=== PATIENT | male | born 1980 | race Caucasian/White ===

== ENCOUNTER 2016-12-24 11:52 | Inpatient (IN) | payer OTHER ==
[~2016-12-24] VITALS: Ht 180.3 cm; Wt 73.6 kg
[2016-12-24 11:54] VITALS: BP 132/83; PULSE 94; RESP 20; TEMP 97.9; O2SAT 97
--- NOTE | 2016-12-24 12:03 | PD ---
Physical Exam Time Seen by Provider: 12:00 Narrative 89yo M sent by Dr. Siddiqi for possible infection in his spine secondary to change on x-ray. Denies IVD use, cancer. Denies encopresis, incontinence, saddle anesthesias. Patient seen in triage. VS reviewed. Awaiting bed placement. Data Data Last Documented VS Vital Signs Date Time Temp Pulse Resp B/P Pulse Ox O2 Delivery O2 Flow Rate FiO2 12/24/16 11:54 97.9 94 20 132/83 97 Room Air [facility] Supervised Visit with ELVIRA: An Staley December 24, 2016 12:03
[2016-12-24 12:40] VITALS: BP 110/48; PULSE 75; RESP 15; O2SAT 99
[2016-12-24 12:55] VITALS: BP 136/87; PULSE 90; RESP 15; O2SAT 97
[2016-12-24] MEDS ORDERED: SODIUM CHLOR 0.9% 1000 ML INJ 1,000 ML IV SCH (13:12)
[2016-12-24] MEDS ORDERED: ONDANSETRON HCL 4 MG/2 ML VIAL IVP ONE (13:15)
[2016-12-24] MEDS ORDERED: SODIUM CHLORIDE 0.9% FLUSH 10 ML FLUSH IV FLUSH PRN ×2 (13:15→19:30)
[2016-12-24] MEDS ORDERED: MORPHINE SULFATE 4 MG/ML INJ IV PUSH ONE ×2 (13:15→14:45)
--- NOTE | 2016-12-24 13:30 | PD ---
HPI Chief Complaint: Abnormal Results Time Seen by Provider: 13:19 Travel History International Travel<30 days: No Contact w/Intl Traveler<30days: No Traveled to known affect area: No History of Present Illness HPI Patient comes in from Dr. Rob's office for evaluation and possible neurosurgery consult possible pyogenic infection of the lumbar spine. Patient states he's been dealing with back pain since October which was initially diagnosed as a strain as the pain began after he done some heavy lifting. Patient had MRI previously that showed L3-4 interspace inflammation with a central herniated disc. Patient reportedly had a right arm infection September 2016 that he treated by himself. Dr. Rob took x-rays and his office that shows severe discitis causing patient to be sent to the emergency department. Patient states his back pain is sharp stabbing and radiates into his right leg. Pain is worse with certain movement. Patient has had minimal relief with anti -inflammatories, prednisone, and Muscle relaxer that he was prescribed. Patient states pain seems be getting worse. Patient reports slightly decreased sensation/numbness in his right lower extremity compared to left distally. Patient reported weakness Dr. Rob however denies that here. Denies any fevers, chest pain, IV drug use, known trauma, loss or change in bowel or bladder. [facility] Past Medical History Medical History: Denies Significant Hx Tetanus Vaccination: Unknown Influenza Vaccination: No Past Surgical History Abdominal Surgery: No Social History Alcohol Use: No Tobacco Use: Yes Substance Use: No Allergies-Medications (Allergen,Severity, Reaction): Coded Allergies: No Known Allergies (Unverified , 12/24/16) Review of Systems Except as stated in HPI: all other systems reviewed are Neg Physical Exam Narrative GENERAL: Well-developed, overly nourished, in no acute distress, and non-ill appearing. SKIN: Focused skin assessment warm and dry. HEAD: Atraumatic. Normocephalic. EYES: Pupils equal and round. EOMI. No scleral icterus. No injection or drainage. ENT: No nasal bleeding or discharge. Mucous membranes pink and moist. NECK: Trachea midline. No JVD. Supple. No nuclear rigidity. CARDIOVASCULAR: Regular rate and rhythm. No murmur appreciated. Dorsal pulses 2+, intact, and equal bilaterally. Capillary refill less than 2 seconds bilaterally. RESPIRATORY: No accessory muscle use. No respiratory distress. Clear to auscultation. Breath sounds equal bilaterally. GASTROINTESTINAL: Abdomen soft, non-tender, nondistended. Hepatic and splenic margins not palpable. No pulsatile mass. MUSCULOSKELETAL: No obvious deformities. No clubbing. No cyanosis. No edema. Full range of motion. Patient reports tenderness to palpation over lumbar spine and right paravertebral spinal muscles. Straight leg test positive bilaterally. Hip: FROM and equal BL with passive flexion, extension, Abduction , Adduction, and internal/external rotation. Pulses equal BL distal to injury. Capillary refill less than 2 seconds distal to injury and equal BL. FROM distal to injury and equal BL. Strength distal to injury equal BL. Plantar flexion and dorsal flexion equal BL. Dorsal pulses equal BL. Sensation decreased right lower extremity 1st web space per patient. NEUROLOGICAL: Awake and alert. No obvious cranial nerve deficits. Motor grossly within normal limits. Normal speech. PSYCHIATRIC: Appropriate mood and affect; insight and judgment normal. Data Data Last Documented VS Vital Signs Date Time Temp Pulse Resp B/P Pulse Ox O2 Delivery O2 Flow Rate FiO2 12/24/16 13:58 70 16 136/87 96 Room Air 12/24/16 11:54 97.9 Orders Basic Metabolic Panel (Bmp) (12/24/16 13:12) Complete Blood Count With Diff (12/24/16 13:12) Prothrombin Time / Inr (Pt) (12/24/16 13:12) Act Partial Throm Time (Ptt) (12/24/16 13:12) Iv Access Insert/Monitor (12/24/16 13:12) Ecg Monitoring (12/24/16 13:12) Oximetry (12/24/16 13:12) Morphine Inj (Morphine Inj) (12/24/16 13:15) Ondansetron Inj (Zofran Inj) (12/24/16 13:15) Sodium Chlor 0.9% 1000 Ml Inj (Ns 1000 M (12/24/16 13:12) Sodium Chloride 0.9% Flush (Ns Flush) (12/24/16 13:15) Mri L Spine W&W/O Contrast (12/24/16 ) Morphine Inj (Morphine Inj) (12/24/16 14:45) Gadodiamide Pf Inj (Omniscan Pf Inj) (12/24/16 15:35) Blood Culture (12/24/16 17:09) C-Reactive Protein (Crp) (12/24/16 17:09) Westergren Sedimentation Rate (12/24/16 17:09) Vancomycin Inj (Vancomycin Inj) (12/24/16 17:15) Cefepime Inj (Maxipime Inj) (12/24/16 17:15) Ceftazidime Inj (Fortaz Inj) (12/24/16 19:15) Metronidazole 500 Mg Inj (Flagyl 500 Mg (12/24/16 19:15) Consult Neurosurgery (12/24/16 ) Admit Order (Ed Use Only) (12/24/16 19:15) Consult Orthopedic (12/24/16 ) Labs Laboratory Tests Test 12/24/16 12/24/16 13:41 17:30 White Blood Count 8.4 TH/MM3 Red Blood Count 4.60 MIL/MM3 Hemoglobin 12.1 GM/DL Hematocrit 37.5 % Mean Corpuscular Volume 81.5 FL Mean Corpuscular Hemoglobin 26.2 PG Mean Corpuscular Hemoglobin 32.2 % Concent Red Cell Distribution Width 15.3 % Platelet Count 349 TH/MM3 Mean Platelet Volume 8.2 FL Neutrophils (%) (Auto) 65.8 % Lymphocytes (%) (Auto) 22.8 % Monocytes (%) (Auto) 8.3 % Eosinophils (%) (Auto) 2.6 % Basophils (%) (Auto) 0.5 % Neutrophils # (Auto) 5.5 TH/MM3 Lymphocytes # (Auto) 1.9 TH/MM3 Monocytes # (Auto) 0.7 TH/MM3 Eosinophils # (Auto) 0.2 TH/MM3 Basophils # (Auto) 0.0 TH/MM3 CBC Comment DIFF FINAL Differential Comment Prothrombin Time 11.8 SEC Prothromb Time International 1.1 RATIO Ratio Activated Partial 29.8 SEC Thromboplast Time Sodium Level 139 MEQ/L Potassium Level 3.7 MEQ/L Chloride Level 103 MEQ/L Carbon Dioxide Level 28.6 MEQ/L Anion Gap 7 MEQ/L Blood Urea Nitrogen 17 MG/DL Creatinine 0.94 MG/DL Estimat Glomerular Filtration 92 ML/MIN Rate Random Glucose 87 MG/DL Calcium Level 9.8 MG/DL Erythrocyte Sedimentation Rate 68 mm/hr C-Reactive Protein 5.10 MG/DL MDM Medical Decision Making Medical Screen Exam Complete: Yes Emergency Medical Condition: Yes Interpretation(s) MRI report with radiologist shows discitis at level 3/4 level destroying the end plates of L3 and L4 with an epidural component. Differential Diagnosis Epidural abscess, discitis, herniation, sciatica, fracture, other Narrative Course 1430 patient reassessed reports some improvement of pain with medications received here however not completely controlled, additional pain medication ordered. Discussed all laboratory findings. Awaiting MRI. 1650 patient reassessed after return from MRI. No change in pain but has not yet received second dose of pain medication. Discussed MRI findings with patient. [address] Floyd recommends starting patient on vancomycin and cefepime while awaiting consults. Discussed all findings and plan care of patient, who was agreeable for admission. All questions were answered. Patient remains stable throughout ED course. Physician Communication Physician Communication [address] Cagle who wants Dr. Rob to admit but will consult if needed. [address] Mota precision assembler for Dr. Rob states he'll contact Dr. Rob to find out what he wants done with this patient. [address] Mota again states Dr. Rob wants patient admitted to medicine and neurosurgery consult. [address] Cagle is remarkable consult patient wants patient started on Vanco 1 g every 12 hours, Fortaz 2 g every 8 hours, and Flagyl 500 mg every 8 hours. [address] Manjarrez who was agreeable to admit the patient. Diagnosis Primary Impression: Discitis of lumbar region Admitting Information Admitting Physician Requests: Admit Condition: Stable Leo Chaudhary December 24, 2016 13:30
[2016-12-24 13:58] VITALS: BP 136/87; PULSE 70; RESP 16; O2SAT 96
[2016-12-24 14:01] LABS: AUTOMATED NEUTROPHIL # 5.5 TH/MM3 (1.8-7.7); BASOPHIL % 0.5 % (0.0-2.0); EOSINOPHIL # 0.2 TH/MM3 (0-0.4); EOSINOPHIL % 2.6 % (0.0-4.0); HEMATOCRIT 37.5 % (39.0-51.0); HEMO FLAGS DIFF FINAL; LYMPH % 22.8 % (9.0-44.0); LYMPHOCYTE # 1.9 TH/MM3 (1.0-4.8); MEAN CELL VOLUME 81.5 FL (80.0-100.0); MEAN CORPUSCULAR HEMOGLOBIN 26.2 PG (27.0-34.0); MEAN CORPUSCULAR HGB CONC 32.2 % (32.0-36.0); MONO % 8.3 % (0.0-8.0); NEUT % 65.8 % (16.0-70.0); PLATELET COUNT 349 TH/MM3 (150-450); RED CELL DISTRIBUTION WIDTH 15.3 % (11.6-17.2); WHITE BLOOD COUNT 8.4 TH/MM3 (4.0-11.0)
[2016-12-24 14:06] LABS: APTT (PATIENT) 29.8 SEC (24.3-30.1); INTERNATIONAL NORMALIZED RATIO 1.1 RATIO; PROTHROMBIN TIME - PATIENT 11.8 SEC (9.8-11.6)
[2016-12-24 14:09] LABS: BICARBONATE 28.6 MEQ/L (21.0-32.0); POTASSIUM 3.7 MEQ/L (3.5-5.1)
[2016-12-24] MEDS ORDERED: GADODIAMIDE PF 287 MG/ML 20 ML VIAL (for RAD MRI) IV ONE (15:35)
--- NOTE | 2016-12-24 16:57 | RADRPT ---
EXAM DATE/TIME: 12/24/2016 15:12 [place] COMPARISON: No previous studies available for comparison. INDICATIONS : Severe back pain radiating to left leg for 2 months. No known injury. CONTRAST: 17 cc Omniscan (gadodiamide) IV MEDICAL HISTORY : None. SURGICAL HISTORY : Left tib/fib rodding. ENCOUNTER: Initial ACUITY: 2 months PAIN SCORE: 9/10 LOCATION: Low back. TECHNIQUE: Multiplanar multisequence MRI of the lumbar spine was performed with and without contr ast. FINDINGS: MRI of the lumbar spine was obtained. This shows extensive discitis at the L3-4 disc space with epidural fluid in the epidural space consis tent with an epidural abscess. Marrow at L1, L2 and L5 are normal. SI joints are normal. There is a retroperitoneal component more so on the left than the right. CONCLUSION: Discitis at the L3-4 level destroying the endplates of L3 and L4 with an epidural com ponent. Wes Mukherjee MD FACR on December 24, 2016 at 16:46 Board Certified Radiologist. This report was verified electronically.
[2016-12-24] MEDS ORDERED: VANCOMYCIN INJ 1,250 MG in SODIUM CHLOR 0.9% 250 ML INJ 250 ML IV ONE (17:15)
[2016-12-24] MEDS ORDERED: CEFEPIME INJ 2,000 MG in SODIUM CHLORIDE 0.9% INJ 100 ML IV ONE (17:15)
[2016-12-24] MEDS ORDERED: metroNIDAZOLE 500 MG INJ 100 ML IV ONE (19:15)
[2016-12-24] MEDS ORDERED: cefTAZidime INJ 2,000 MG in SODIUM CHLORIDE 0.9% INJ 100 ML IV ONE (19:15)
[2016-12-24] MEDS ORDERED: NALOXONE HCL 0.4 MG/ML AMP IV PRN (19:30)
--- NOTE | 2016-12-24 19:32 | PD.CONS ---
[facility] Service Neurosurgery Consult Requested By Haydee MOORE Reason for Consult Spine infection Primary Care Physician Feliciano Wallace History of Present Illness This is a 36-year-old male with no past medical history. 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 He research how to treat the infection on online and apparently he used family members antibiotics to treat himself. Per patient, his wound healed nicely. He states that he started having back pain 2 months ago. He went to see a chiropractor the chiropractor immediately ordered an MRI of his back and found that he had bulging disks. He finally got a referral to see a spinal; surgeon, Dr. Rob yesterday who imaging his back and after reviewing it recommended that he go straight to the emergency room for further admision. He tells me that his pain is about a 9 out of 10 especially when he moves, tries to sit or stand. Coughing and sneezing make things worse as well. He currently denies any chest pain, shortness of breath, nausea or vomiting. He denies any fevers or chills. He denies any abdominal pain. He denies any bladder or bowel incontinence. AN MRI was done. Dr Mcclain was contacted but apparently he refused to come and see his patient. He requested a neurosurgical consult Review of Systems Constitutional: DENIES: Diaphoretic episodes, Fatigue, Fever, Weight gain, Weight loss, Chills, Dizziness, Change in appetite, Night Sweats Endocrine: DENIES: Heat/cold intolerance, Polydipsia, Polyuria, Polyphagia Eyes: DENIES: Blurred vision, Diplopia, Eye inflammation, Eye pain, Vision loss , Photosensitivity, Double Vision Ears, nose, mouth, throat: DENIES: Tinnitus, Hearing loss, Vertigo, Nasal discharge, Oral lesions, Throat pain, Hoarseness, Ear Pain, Running Nose, Epistaxis, Sinus Pain, Toothache, Odynophagia Respiratory: DENIES: Apneas, Cough, Snoring, Wheezing, Hemoptysis, Sputum production, Shortness of breath Cardiovascular: DENIES: Chest pain, Palpitations, Syncope, Dyspnea on Exertion , PND, Lower Extremity Edema, Orthopnea, Claudication Gastrointestinal: DENIES: Abdominal pain, Black stools, Bloody stools, Constipation, Diarrhea, Nausea, Vomiting, Difficulty Swallowing, Anorexia Genitourinary: DENIES: Sexual dysfunction, Urinary frequency, Urinary incontinence, Urgency, Hematuria, Dysuria, Nocturia, Penile Discharge, Testicular Pain, Testicular Swelling Musculoskeletal: COMPLAINS OF: Joint pain, Back pain, DENIES: Muscle aches, Stiffness, Joint Swelling, Neck pain Integumentary: DENIES: Abnormal pigmentation, Nail changes, Pruritus, Rash Hematologic/lymphatic: DENIES: Bruising, Lymphadenopathy Immunologic/allergic: COMPLAINS OF: Eczema Neurologic: DENIES: Abnormal gait, Headache, Localized weakness, Paresthesias, Seizures, Speech Problems, Tremor, Poor Balance Psychiatric: DENIES: Anxiety, Confusion, Mood changes, Depression, Hallucinations, Agitation, Suicidal Ideation, Homicidal Ideation, Delusions Past Family Social History Allergies: Coded Allergies: No Known Allergies (Unverified , 12/24/16) Past Medical History None Past Surgical History Left Lower extremities surgery and foot surgery Reported Medications Diclofenac Sodium DR (Diclofenac Sodium) 50 Mg Tabdr 50 Mg PO BID Active Ordered Medications Current Medications Morphine Sulfate (Morphine Inj) 2 mg ONCE ONCE IV PUSH Last administered on 13:49; Start 12/24/16 at 13:15; Stop 12/24/16 at 13:16; Status DC Ondansetron HCl 4 mg 4 mg ONCE ONCE IVP Last administered on 12/24/16 13:49; Start 12/24/16 at 13:15; Stop 12/24/16 at 13:16; Status DC Sodium Chloride (NS 1000 ml Inj) 1,000 ml @ 1,000 mls/hr Q1H IV Last administered on 12/24/16 13:50; Start 12/24/16 at 13:12; Stop 12/24/16 at 14:14 ; Status DC Sodium Chloride (NS Flush) 2 ml UNSCH PRN IV FLUSH FLUSH AFTER USING IV ACCESS ; Start 12/24/16 at 13:15; Stop 12/25/16 at 16:27; Status DC Morphine Sulfate (Morphine Inj) 2 mg ONCE ONCE IV PUSH Last administered on 16:45; Start 12/24/16 at 14:45; Stop 12/24/16 at 14:46; Status DC Gadodiamide 17 ml 17 ml STK-MED ONCE IV Last administered on 12/24/16 15:35; Start 12/24/16 at 15:35; Stop 12/24/16 at 15:36; Status DC Vancomycin HCl 1250 mg/Sodium Chloride 262.5 ml @ 250 mls/hr ONCE ONCE IV Last administered on 12/24/16 22:11; Start 12/24/16 at 17:15; Stop 12/24/16 at 18:17; Status DC Cefepime HCl 2000 mg/Sodium Chloride 100 ml @ 200 mls/hr ONCE ONCE IV Last administered on 12/24/16 21:25; Start 12/24/16 at 17:15; Stop 12/24/16 at 17:59 ; Status DC Ceftazidime 2000 mg/Sodium Chloride 100 ml @ 200 mls/hr ONCE ONCE IV Last administered on 12/24/16 21:07; Start 12/24/16 at 19:15; Stop 12/24/16 at 19:44 ; Status DC Metronidazole (Flagyl 500 Mg Inj) 100 ml @ 100 mls/hr ONCE ONCE IV Last administered on 12/24/16 20:00; Start 12/24/16 at 19:15; Stop 12/24/16 at 20:14 ; Status DC Sodium Chloride (NS Flush) 2 ml UNSCH PRN IV FLUSH FLUSH AFTER USING IV ACCESS ; Start 12/24/16 at 19:30 Sodium Chloride (NS Flush) 2 ml BID IV FLUSH Last administered on 12/26/16 21: 00; Start 12/24/16 at 21:00 Naloxone HCl (Narcan Inj) 0.4 mg UNSCH PRN IV SEE LABEL COMMENTS; Start at 19:30 Hydromorphone HCl 0.5 mg 0.5 mg Q4H PRN IV PUSH BREAKTHROUGH PAIN Last administered on 12/26/16 09:27; Start 12/24/16 at 19:45; Stop 12/26/16 at 12:29; Status DC Pharmacy Profile Note 0 ml @ 0 mls/hr UNSCH OTHER ; Start 12/24/16 at 19:45; Stop 12/27/16 at 12:14; Status DC Ceftazidime 2000 mg/Sodium Chloride 100 ml @ 200 mls/hr Q8H IV Last administered on 12/27/16 12:02; Start 12/25/16 at 04:00; Stop 12/27/16 at 13:11; Status DC Metronidazole (Flagyl 500 Mg Inj) 100 ml @ 100 mls/hr Q8H IV Last administered on 12/25/16 11:33; Start 12/25/16 at 03:00; Stop 12/25/16 at 16:24; Status DC Hydromorphone HCl 0.5 mg 0.5 mg ONCE ONCE IV PUSH Last administered on 21:03; Start 12/24/16 at 20:15; Stop 12/24/16 at 20:18; Status DC Vancomycin HCl/ Sodium Chloride (Vancomycin Inj/ NS 500 ml Inj) 515 ml @ 257.5 mls/ hr Q8H IV Last administered on 12/25/16 11:32; Start 12/25/16 at 05:00; Stop 12/25/16 at 22:42; Status DC Miscellaneous Information SPECIFIC LAB TO BE MICHEL... ONCE ONCE .XX Last administered on 12/26/16 08:45; Start 12/26/16 at 08:45; Stop 12/26/16 at 08:46; Status DC Influenza Virus Vaccine (Flu (Quadrivalent) Vaccine Inj) 0.5 ml ONCE ONCE IM ; Start 12/27/16 at 09:00; Stop 12/27/16 at 09:01; Status Cancel Midazolam HCl (Versed Inj) 5 mg STK-MED ONCE .ROUTE Last administered on 13:50; Start 12/25/16 at 13:50; Stop 12/25/16 at 13:51; Status DC Fentanyl Citrate 250 mcg 250 mcg STK-MED ONCE .ROUTE Last administered on 13:50; Start 12/25/16 at 13:50; Stop 12/25/16 at 13:51; Status DC Metronidazole (Flagyl 500 Mg Inj) 100 ml @ 100 mls/hr Q8H IV Last administered on 12/26/16 12:16; Start 12/25/16 at 20:00; Stop 12/26/16 at 13:47; Status DC Acetaminophen/ Hydrocodone Bitart ([place] 7.5-325 Mg) 1 tab Q4H PRN PO PAIN SCALE 4 TO 6; Start 12/25/16 at 18:00 Acetaminophen/ Hydrocodone Bitart ([place] 10-325 Mg) 1 tab Q6H PRN PO PAIN SCALE 7 TO 10 Last administered on 12/27/16 15:56; Start 12/25/16 at 18:00 Polyethylene Glycol (Miralax) 17 gm DAILY PO Last administered on 12/27/16 08: 34; Start 12/26/16 at 09:00 Magnesium Hydroxide (Milk Of Ana Cristina Limario) 30 ml DAILY PRN PO CONSTIPATION; Start 12/25/16 at 18:15 Senna/Docusate Sodium 1 tab 1 tab BID PRN PO CONSTIPATION; Start 12/25/16 at 18: 15 Vancomycin HCl/ Sodium Chloride (Vancomycin Inj/ NS 500 ml Inj) 515 ml @ 257.5 mls/ hr Q8H IV Last administered on 12/27/16 08:34; Start 12/26/16 at 01:00; Stop 12/27/16 at 12:14; Status DC Hydromorphone HCl (Dilaudid Pf Inj) 1 mg Q4H PRN IV PUSH BREAKTHROUGH PAIN Last administered on 12/27/16 15:10; Start 12/26/16 at 15:45 Hydromorphone HCl (Dilaudid Pf Inj) 1 mg ONCE ONCE IV PUSH Last administered on 12/26/16 13:15; Start 12/26/16 at 13:00; Stop 12/26/16 at 13:01; Status DC Ketorolac Tromethamine 15 mg 15 mg Q6HR IV PUSH Last administered on 12/27/16 12:02; Start 12/26/16 at 18:00; Stop 12/29/16 at 18:00 Cefepime HCl/ Sodium Chloride (Maxipime Inj/NS Inj) 100 ml @ 200 mls/hr Q8H IV ; Start 12/27/16 at 15:00 Family History mother from ovarian cancer at age 51. Social History Smokes occasionally, very rarely He hasn't drank ETOH for the past 3-4 years. Admits to marijuana use a long time ago. Physical Exam Vital Signs Vital Signs Date Time Temp Pulse Resp B/P Pulse Ox O2 Delivery O2 Flow Rate FiO2 12/24/16 13:58 70 16 136/87 96 Room Air 12/24/16 13:54 14 12/24/16 12:55 80 14 96 Room Air 12/24/16 12:55 90 15 136/87 97 Room Air 12/24/16 12:40 75 15 110/48 99 Room Air 12/24/16 11:54 97.9 94 20 132/83 97 Room Air Physical Exam Mr Oliveira is alert, awake and oriented to time, place and person. Speech is fluent. Cranial nerve examination: pupils to be equal, round and reactive to light. Extra-ocular movements are intact. Facial motor and sensory function are normal and symmetrical. Gross hearing appears intact. Sternocleidomastoid and trapezius muscles are symmetrical. Other cranial nerves are intact. Neck is soft and supple with a good range of motion without pain. Muscle strength is normal in all muscle groups of both upper and lower extremities. Sensory examination is intact to light touch and pin prick in both the upper and lower extremities. Deep tendon reflexes are symmetrical in both upper and lower extremities. There is a bilateral plantar flexion response. Cerebellar examination is unremarkable, without deficits. Laboratory Laboratory Tests Test 12/24/16 12/24/16 13:41 17:30 White Blood Count 8.4 Red Blood Count 4.60 Hemoglobin 12.1 Hematocrit 37.5 Mean Corpuscular Volume 81.5 Mean Corpuscular Hemoglobin 26.2 Mean Corpuscular Hemoglobin 32.2 Concent Red Cell Distribution Width 15.3 Platelet Count 349 Mean Platelet Volume 8.2 Neutrophils (%) (Auto) 65.8 Lymphocytes (%) (Auto) 22.8 Monocytes (%) (Auto) 8.3 Eosinophils (%) (Auto) 2.6 Basophils (%) (Auto) 0.5 Neutrophils # (Auto) 5.5 Lymphocytes # (Auto) 1.9 Monocytes # (Auto) 0.7 Eosinophils # (Auto) 0.2 Basophils # (Auto) 0.0 CBC Comment DIFF FINAL Differential Comment Prothrombin Time 11.8 Prothromb Time International 1.1 Ratio Activated Partial 29.8 Thromboplast Time Sodium Level 139 Potassium Level 3.7 Chloride Level 103 Carbon Dioxide Level 28.6 Anion Gap 7 Blood Urea Nitrogen 17 Creatinine 0.94 Estimat Glomerular Filtration 92 Rate Random Glucose 87 Calcium Level 9.8 Erythrocyte Sedimentation Rate 68 C-Reactive Protein 5.10 Date/Time Procedure Status Source Growth 12/24/16 17:00 Aerobic Blood Culture Received Blood Peripheral Pending 12/24/16 17:00 Anaerobic Blood Culture Received Blood Peripheral Pending Result Diagram: 12/24/16 1341 12/24/16 1341 Imaging Last Impressions Lumbar Spine MRI 12/24/16 0000 Signed Impressions: Service Date/Time: Saturday, December 24, 2016 15:12 - CONCLUSION: Discitis at the L3-4 level destroying the endplates of L3 and L4 with an epidural component. Wes Mukherjee MD FACR Attending Statement This patient is already under the care of a spinal surgeon, Dr Mcclain. I do not assume care of the patient. No emergency surgery needed Neuro. neuro checks in a serial fashion. Please send Sed rate, CRP, and start broad spectrum IV ABX. Recommend CT-guided biopsy and cultures. I explained to Mr Oliveira that he is Dr Mcclain's patient, who is a spine surgeon. I will defer further management to him, who knows the patient Pulmonary aggressive pulmonary toilette, nasotracheal suction, and breathing treatments with nebulizers. PT and OT evaluation Nutrition. NPO after midnight Renal. monitor closely urine output, BUN and creatinine Endocrine. Monitor serial Acu checks and SSI as needed in detail ID monitor for signs of infection Protonix for stress ulcer prophylaxis Doroteo hose and SCD's for DVT prophylaxis Dar Cagle MD December 24, 2016 19:32
[2016-12-24] MEDS ORDERED: Vancomycin Consult Pharmacy 1 EA OTHER SCH (19:45)
[2016-12-24 19:57] VITALS: BP 134/76; PULSE 86; RESP 18; O2SAT 99
[2016-12-24] MEDS ORDERED: HYDROmorphone HCL PF 1 MG/ML VIAL IV PUSH ONE (20:15)
[2016-12-24] MEDS: SODIUM CHLORIDE 0.9% FLUSH 10 ML FLUSH IV FLUSH SCH (21:06)
[2016-12-24] MEDS: HYDROmorphone HCL PF 1 MG/ML VIAL IV PUSH PRN (21:10)
[2016-12-24 21:19] VITALS: BP 153/58; PULSE 76; RESP 18; O2SAT 97
[2016-12-24] MEDS ORDERED: DICL50TA3 PO (21:20)
[2016-12-25] VITALS (7 sets, daily range): BP systolic 107–143; BP diastolic 62–88; PULSE 57–77; RESP 19–21; TEMP 97.7–98.7; O2SAT 97–100
[2016-12-25] MEDS: metroNIDAZOLE 500 MG INJ 100 ML IV SCH ×3 (00:54→20:47)
[2016-12-25] MEDS: HYDROmorphone HCL PF 1 MG/ML VIAL IV PUSH PRN ×5 (00:54→22:43)
[2016-12-25] MEDS: cefTAZidime INJ 2,000 MG in SODIUM CHLORIDE 0.9% INJ 100 ML IV SCH ×3 (05:06→20:47)
[2016-12-25] MEDS: VANCOMYCIN 1,500 MG/NS 500 ML IV SCH ×4 (06:40→11:32)
[2016-12-25 08:11] LABS: AUTOMATED NEUTROPHIL # 3.3 TH/MM3 (1.8-7.7); BASOPHIL % 0.7 % (0.0-2.0); EOSINOPHIL # 0.2 TH/MM3 (0-0.4); EOSINOPHIL % 3.6 % (0.0-4.0); HEMATOCRIT 32.7 % (39.0-51.0); HEMO FLAGS DIFF FINAL; LYMPH % 30.3 % (9.0-44.0); LYMPHOCYTE # 1.8 TH/MM3 (1.0-4.8); MEAN CELL VOLUME 80.9 FL (80.0-100.0); MEAN CORPUSCULAR HEMOGLOBIN 25.6 PG (27.0-34.0); MEAN CORPUSCULAR HGB CONC 31.6 % (32.0-36.0); MONO % 10.5 % (0.0-8.0); NEUT % 54.9 % (16.0-70.0); PLATELET COUNT 258 TH/MM3 (150-450); RED BLOOD COUNT 4.04 MIL/MM3 (4.50-5.90); RED CELL DISTRIBUTION WIDTH 14.9 % (11.6-17.2)
[2016-12-25 08:35] LABS: BICARBONATE 30.8 MEQ/L (21.0-32.0); POTASSIUM 3.7 MEQ/L (3.5-5.1)
[2016-12-25] MEDS: SODIUM CHLORIDE 0.9% FLUSH 10 ML FLUSH IV FLUSH SCH ×2 (08:41→20:54)
--- NOTE | 2016-12-25 13:38 | HHI.HP ---
HPI Service [facility] Primary Care Physician Feliciano Wallace Admission Diagnosis discitis with epidural component Diagnoses: Travel History International Travel<30 Days: No Contact w/Intl Traveler <30 Da: No Traveled to Known Affected Are: No History of Present Illness 13:40. came to evaluate pt but he was down in specials. I evaluated the patient later. He is a 36-year-old male with no past medical history. 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 He research how to treat the infection on online and apparently he used family members antibiotics to treat himself. Per patient, his wound healed nicely. He admits that he should not have done this and feels that this might have caused the problem in his back. He states that he started having back pain 2 months ago. He went to see a chiropractor because he thought he had adjustment issues with his back, the chiropractor immediately ordered an MRI of his back and found that he had bulging disks. He finally got a referral to see Dr. Rob yesterday who did imaging of his back and after reviewing it recommended that he go straight to the emergency room for further evaluation. He tells me that his pain is about a 9 out of 10 especially when he moves, tries to sit or stand. Coughing and sneezing make things worse as well. He currently denies any chest pain, shortness of breath, nausea or vomiting. He denies any fevers or chills at this time. He denies any abdominal pain. He denies any bladder or bowel incontinence. Review of Systems Except as stated in HPI: all other systems reviewed are Neg Past Family Social History Past Medical History None per patient Past Surgical History Left Lower extremities surgery and foot surgery Reported Medications Reported Meds & Active Scripts Active Reported Diclofenac Sodium DR (Diclofenac Sodium) 50 Mg Tabdr 50 Mg PO BID Allergies: Coded Allergies: No Known Allergies (Unverified , 12/24/16) Family History Other past away from ovarian cancer at age 51. Father is healthy Social History Smokes occasionally, very rarely per patient. He hasn't drank for the past 3-4 years. Admits to marijuana use a long time ago. Physical Exam Vital Signs Vital Signs Date Time Temp Pulse Resp B/P Pulse Ox O2 Delivery O2 Flow Rate FiO2 12/25/16 08:38 97.9 61 19 142/84 99 12/25/16 06:38 18 12/25/16 04:00 97.7 57 20 130/72 97 12/25/16 00:00 98.0 58 20 107/62 97 12/24/16 21:19 76 18 153/58 97 Room Air 12/24/16 19:57 86 18 134/76 99 Room Air 12/24/16 13:58 70 16 136/87 96 Room Air 12/24/16 13:54 14 Physical Exam GENERAL: This is a well-nourished, well-developed patient, in no apparent distress. SKIN: No rashes, ecchymoses or lesions. Cool and dry. HEAD: Atraumatic. Normocephalic. No temporal or scalp tenderness. EYES: Pupils equal round and reactive. Extraocular motions intact. No scleral icterus. No injection or drainage. ENT: Nose without drainage. Throat without erythema, tonsillar hypertrophy or exudate. Uvula midline. Airway patent. NECK: Trachea midline. No JVD or lymphadenopathy. Supple, nontender, no meningeal signs. CARDIOVASCULAR: Regular rate and rhythm without murmurs. RESPIRATORY: Clear to auscultation. Breath sounds equal bilaterally. No wheezes GASTROINTESTINAL: Abdomen soft, non-tender, nondistended. No guarding. MUSCULOSKELETAL: Extremities without edema. He does have difficulty lifting his lower extremities against resistance especially on the left more than the right. Sensation seems to be slightly decreased on the left compared to the right. He is able to flex and extend his feet. Upper extremity strength is a 5 out of 5. He does have pain with palpation in the lumbar area. He is able to sit up however that causes pain NEUROLOGICAL: Awake and alert. Cranial nerves II through XII intact. Normal speech Laboratory Laboratory Tests Test 12/24/16 12/24/16 12/25/16 13:41 17:30 07:19 White Blood Count 8.4 6.0 Red Blood Count 4.60 4.04 Hemoglobin 12.1 10.3 Hematocrit 37.5 32.7 Mean Corpuscular Volume 81.5 80.9 Mean Corpuscular Hemoglobin 26.2 25.6 Mean Corpuscular Hemoglobin 32.2 31.6 Concent Red Cell Distribution Width 15.3 14.9 Platelet Count 349 258 Mean Platelet Volume 8.2 8.1 Neutrophils (%) (Auto) 65.8 54.9 Lymphocytes (%) (Auto) 22.8 30.3 Monocytes (%) (Auto) 8.3 10.5 Eosinophils (%) (Auto) 2.6 3.6 Basophils (%) (Auto) 0.5 0.7 Neutrophils # (Auto) 5.5 3.3 Lymphocytes # (Auto) 1.9 1.8 Monocytes # (Auto) 0.7 0.6 Eosinophils # (Auto) 0.2 0.2 Basophils # (Auto) 0.0 0.0 CBC Comment DIFF FINAL DIFF FINAL Differential Comment Prothrombin Time 11.8 Prothromb Time International 1.1 Ratio Activated Partial 29.8 Thromboplast Time Sodium Level 139 143 Potassium Level 3.7 3.7 Chloride Level 103 106 Carbon Dioxide Level 28.6 30.8 Anion Gap 7 6 Blood Urea Nitrogen 17 15 Creatinine 0.94 0.92 Estimat Glomerular Filtration 92 94 Rate Random Glucose 87 78 Calcium Level 9.8 9.1 Erythrocyte Sedimentation Rate 68 C-Reactive Protein 5.10 Date/Time Procedure Status Source Growth 12/24/16 20:01 Aerobic Blood Culture - Preliminary Resulted Blood Peripheral NO GROWTH IN 1 DAY 12/24/16 20:01 Anaerobic Blood Culture - Preliminary Resulted Blood Peripheral NO GROWTH IN 1 DAY Result Diagram: 12/25/16 0719 12/25/16 0719 Imaging Last Impressions Needle Biopsy/Aspiration X-Ray 12/25/16 0000 Signed Impressions: Service Date/Time: December 14:37 - CONCLUSION: Uncomplicated needle aspiration of L3-4 disc space yielding scant amount of serosanguineous fluid. The entire sample was submitted for Gram stain and C&S. Aldo Cronin MD Lumbar Spine MRI 12/24/16 0000 Signed Impressions: Service Date/Time: Saturday, December 24, 2016 15:12 - CONCLUSION: Discitis at the L3-4 level destroying the endplates of L3 and L4 with an epidural component. Wes Mukherjee MD FACR Assessment and Plan Assessment and Plan Patient admitted for discitis: Neurosurgery evaluated the patient and ordered lumbar disc aspiration/biopsy. This was done today and all the fluid was sent for Gram stain and cultures. Patient was started on IV vancomycin, Flagyl and ceftazidime in the ED and this was continued. I have placed a consult to infectious disease. I discussed the case with Dr. Clarke, on-call infectious disease, and she recommended switching the Flagyl IV to by mouth. We'll follow cultures. Orthopedic surgery consult in place. Blood cultures negative 1 day. Continue pain control with [place] as needed for pain and Dilaudid for breakthrough pain. We'll get physical therapy to evaluate patient. CRP and ESR elevated. Stool softeners as needed in place for bowel regiment. Appreciate assistance from consultants. Code Status full Discussed Condition With Patient Shama Jaimes MD Dec 25, 2016 13:38
[2016-12-25] MEDS ORDERED: fentaNYL CITRATE 250 MCG/5 ML AMP ONE (13:50)
[2016-12-25] MEDS ORDERED: MIDAZOLAM HCL 5 MG/5 ML VIAL ONE (13:50)
--- NOTE | 2016-12-25 14:21 | PD.RAD ---
Post Procedure Progress Note Pre Procedure Diagnosis: (1) Discitis of lumbar region Post Procedure Diagnosis: (1) Discitis of lumbar region Procedure Date: Dec 25, 2016 Supervising Radiologist: Aldo Cronin Assisting Radiologist: Kumar Israel MD Proceduralist/Assist: Amy Hoover, RT(R)(CV), Nancy Finn RT(R) Estimated blood loss: 0 ml Anesthesia: Conscious Sedation Plan of Activity Patient to Unit: Nursing Unit Patient Condition: Good Additional Comments: Aspirated scant amount of serosang. fluid See PACS Report for procedural detail/treatment Aldo Cronin MD Dec 25, 2016 14:21
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
[2016-12-25] MEDS ORDERED: ACETAMINOPHEN/HYDROcodone 325 MG/7.5 MG TAB PO PRN (18:00)
[2016-12-25] MEDS ORDERED: DOCUSATE SODIUM 50 MG/SENNA 8.6 MG TAB PO PRN (18:15)
[2016-12-25] MEDS ORDERED: MAGNESIUM HYDROXIDE SUSP 30 ML CUP PO PRN (18:15)
[2016-12-25] MEDS: ACETAMINOPHEN/HYDROcodone 325 MG/10 MG TAB PO PRN (20:52)
[2016-12-26] VITALS: BP 116/69; PULSE 72; RESP 20; TEMP 98.3; O2SAT 99
[2016-12-26] MEDS: VANCOMYCIN 1,500 MG/NS 500 ML IV SCH ×6 (00:29→17:07)
[2016-12-26] MEDS: ACETAMINOPHEN/HYDROcodone 325 MG/10 MG TAB PO PRN ×4 (02:00→20:25)
[2016-12-26] MEDS: cefTAZidime INJ 2,000 MG in SODIUM CHLORIDE 0.9% INJ 100 ML IV SCH ×3 (04:48→20:24)
[2016-12-26] MEDS: metroNIDAZOLE 500 MG INJ 100 ML IV SCH ×2 (04:49→12:16)
[2016-12-26] MEDS: HYDROmorphone HCL PF 1 MG/ML VIAL IV PUSH PRN ×4 (04:53→22:08)
[2016-12-26] MEDS: POLYETHYLENE GLYCOL 17 GM PKG PO SCH (08:16)
[2016-12-26] MEDS: SODIUM CHLORIDE 0.9% FLUSH 10 ML FLUSH IV FLUSH SCH ×2 (08:18→21:00)
[2016-12-26] MEDS ORDERED: PHARMACY ORDERED LAB ONE (08:45)
[2016-12-26 09:38] VITALS: BP 129/77; PULSE 68; RESP 18; TEMP 97.9; O2SAT 98
--- NOTE | 2016-12-26 10:19 | MB ---
cc: REKHA ALONSO M.D. DATE OF CONSULTATION: 12/26/2016 REASON FOR CONSULTATION/CHIEF COMPLAINT: Low back pain. HISTORY OF PRESENT ILLNESS This 36 year-old male presents <<0:26>> history. Dr. Marilyn Jaimes. Requested orthopedic consultation. On October 26, 2016 the patient had an insidious onset of low back pain. He stated at this time he was moving furniture in his room. He said the next morning he had difficulty getting out of bed because of severe low back pain. MRI scan of the lumbar spine was taken at [facility] MRI scan. This showed the patient to have a L3-4 central herniated nucleus pulposus with in my opinion showed a inflammation of the interspace. The patient states that previously, that he did have an injury to his right arm that was infected. This was in September 2016. He states that he did not seek medical care be treated himself with antibiotics from a family member. The patient was seen in the office on December 24, 2016. X-ray imagines in the office showed the patient to have severe L3-4 diskitis. The patient denies any headaches, any radiating pain into the leg any numbness, tingling in the legs. Any weakness involving the legs. Denies any significant fevers, chills. The patient was admitted to the hospital. The patient admitted to the medical service in the hospital. His CBC showed no leukocytosis. The patient does have elevated Westergren sed rate and C-reactive protein. MRI scan that shows L3-4 diskitis with the epidural granulation tissue on the dorsal aspect of the Cauda quinine. The patient has mild compression at this level. PAST MEDICAL HISTORY See accompanying records. PHYSICAL EXAMINATION GENERAL APPEARANCE: 36-year-old male looks his stated age. LUNGS: Clear. CARDIAC: regular rate and rhythm. No murmurs. ABDOMEN: Soft. Good bowel sounds. NEUROLOGIC: The patient does exhibit spasm and tenderness to the lumbar spine, deep tendon reflexes were 2/4 equal bilaterally of patella 1/4 equal bilaterally Achilles. Motor was 5/5 equal bilaterally. The patient has a supple neck with no increased pain with range of motion of the neck pain. Motor is +5/5 equal bilateral lower extremities. IMPRESSION L3-4 diskitis with, culture pending. RECOMMENDATIONS/PLAN: We will order a back brace for the patient to wear when he is out of bed. Infectious disease evaluation and management. Antibiotic management will be per infectious disease. At this time I recommend continuation of nonoperative conservative care and continuation of medical management with IV antibiotics and with the back brace. I will continue to monitor the patient with you. MD JAY JAY Canchola/david /7:41 AM /9:18 AM
[2016-12-26 10:20] VITALS: PULSE 55
[2016-12-26 11:30] VITALS: BP 124/64; PULSE 65; RESP 19; TEMP 98.5; O2SAT 98
[2016-12-26] MEDS ORDERED: HYDROmorphone HCL PF 1 MG/ML VIAL IV PUSH ONE (13:00)
--- NOTE | 2016-12-26 13:47 | PD.ID.CON ---
History of Present Illness Service ID Consult Requested By Reason for Consult Evaluation and Mment of infectious discitis ? epidural abscess. Primary Care Physician Feliciano Wallace Diagnoses: History of Present Illness is a 36 y/o CM with with no significant PMHx of chronic back pain. Patient reports to me that approx. 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 He took it upon himself to treat his infected wound with doxycycline left over from family prescriptions. He thinks this helped and the wound healed. He admits that he should not have done this and feels that this might have caused the problem in his back. He states that he started having back pain 2 months ago. He also reports night sweats and continuing back pain. He went to see a chiropractor because he thought he had adjustment issues with his back, the chiropractor immediately ordered an MRI of his back and found that he had bulging disks. He finally got a referral to see Dr. Rob yesterday who did imaging of his back and after reviewing it recommended that he go straight to the emergency room for further evaluation. He tells me that his pain is about a 9 out of 10 especially when he moves, tries to sit or stand. Coughing and sneezing make things worse as well.He currently denies any chest pain, shortness of breath, nausea or vomiting. He denies any fevers or chills at this time. He denies any abdominal pain. He denies any bladder or bowel incontinence. He does endorse night sweats off and on since last 3 months. ID consulted for evaluation and Mment of infectious etiology discitis ? epidural abscess. Review of Systems Constitutional: COMPLAINS OF: Night Sweats, DENIES: Diaphoretic episodes, Fatigue, Fever, Weight gain, Weight loss, Chills, Dizziness, Change in appetite Endocrine: DENIES: Heat/cold intolerance, Polydipsia, Polyuria, Polyphagia Eyes: DENIES: Blurred vision, Diplopia, Eye inflammation, Eye pain, Vision loss , Photosensitivity, Double Vision Ears, nose, mouth, throat: DENIES: Tinnitus, Hearing loss, Vertigo, Nasal discharge, Oral lesions, Throat pain, Hoarseness, Ear Pain, Running Nose, Epistaxis, Sinus Pain, Toothache, Odynophagia Respiratory: DENIES: Apneas, Cough, Snoring, Wheezing, Hemoptysis, Sputum production, Shortness of breath Cardiovascular: DENIES: Chest pain, Palpitations, Syncope, Dyspnea on Exertion , PND, Lower Extremity Edema, Orthopnea, Claudication Gastrointestinal: DENIES: Abdominal pain, Black stools, Bloody stools, Constipation, Diarrhea, Nausea, Vomiting, Difficulty Swallowing, Anorexia Genitourinary: DENIES: Sexual dysfunction, Urinary frequency, Urinary incontinence, Urgency, Hematuria, Dysuria, Nocturia, Penile Discharge, Testicular Pain, Testicular Swelling Musculoskeletal: COMPLAINS OF: Back pain, DENIES: Joint pain, Muscle aches, Stiffness, Joint Swelling, Neck pain Integumentary: DENIES: Abnormal pigmentation, Nail changes, Pruritus, Rash Hematologic/lymphatic: DENIES: Bruising, Lymphadenopathy Immunologic/allergic: DENIES: Eczema, Urticaria Neurologic: DENIES: Abnormal gait, Headache, Localized weakness, Paresthesias, Seizures, Speech Problems, Tremor, Poor Balance Psychiatric: DENIES: Anxiety, Confusion, Mood changes, Depression, Hallucinations, Agitation, Suicidal Ideation, Homicidal Ideation, Delusions Except as stated in HPI: all other systems reviewed are Neg Past Family Social History Allergies: Coded Allergies: No Known Allergies (Unverified , 12/24/16) Past Medical History Chronic back pain Past Surgical History Left Lower extremities surgery and foot surgery has hardware. Reported Medications Reported Meds & Active Scripts Active Reported Diclofenac Sodium DR (Diclofenac Sodium) 50 Mg Tabdr 50 Mg PO BID Reports using Doxycycline 2-3 weeks back. Active Ordered Medications Current Medications Medications (Trade) Dose Ordered Sig/Haroon Route Start Time Stop Time Status Last Admin (NS Flush) 2 ml UNSCH PRN IV FLUSH 12/24/16 19:30 (NS Flush) 2 ml BID IV FLUSH 12/24/16 21:00 12/25/16 20:54 Naloxone HCl 0.4 mg 0.4 mg UNSCH PRN IV 12/24/16 19:30 Pharmacy Profile Note 0 ml @ 0 mls/hr UNSCH OTHER 12/24/16 19:45 Ceftazidime 2000 mg/Sodium Chloride 100 ml @ 200 mls/hr Q8H IV 12/25/16 04:00 12/26/16 13:16 (Flagyl 500 Mg Inj) 100 ml @ 100 mls/hr Q8H IV 12/25/16 20:00 12/26/16 12:16 ([place] 7.5-325 Mg) 1 tab Q4H PRN PO 12/25/16 18:00 ([place] 10-325 Mg) 1 tab Q6H PRN PO 12/25/16 18:00 12/26/16 08:15 (Miralax) 17 gm DAILY PO 12/26/16 09:00 12/26/16 08:16 (Milk Of Ana Cristina Limario) 30 ml DAILY PRN PO 12/25/16 18:15 Senna/Docusate Sodium 1 tab 1 tab BID PRN PO 12/25/16 18:15 (Vancomycin Inj/ NS 500 ml Inj) 515 ml @ 257.5 mls/ hr Q8H IV 12/26/16 01:00 12/26/16 09:28 (Dilaudid Pf Inj) 1 mg Q4H PRN IV PUSH 12/26/16 15:45 Family History Mother from ovarian cancer at age 51. Father is healthy Social History Smokes occasionally, very rarely per patient. He hasn't drank for the past 3-4 years. Admits to marijuana use a long time ago. Physical Exam Vital Signs Vital Signs Date Time Temp Pulse Resp B/P Pulse Ox O2 Delivery O2 Flow Rate FiO2 12/26/16 11:30 98.5 65 19 124/64 98 12/26/16 09:38 97.9 68 18 129/77 98 12/26/16 00:00 98.3 72 20 116/69 99 12/25/16 20:00 98.6 67 20 126/80 98 12/25/16 16:08 98.1 77 21 143/79 100 12/25/16 14:25 98.7 74 20 142/88 97 12/25/16 13:50 98.4 69 20 136/84 100 Physical Exam GENERAL: This is a well-nourished, well-developed patient, in no apparent distress. SKIN: No rashes, ecchymoses or lesions. Cool and dry. HEAD: Atraumatic. Normocephalic. No temporal or scalp tenderness. EYES: Pupils equal round and reactive. Extraocular motions intact. No scleral icterus. No injection or drainage. ENT: Nose without bleeding, purulent drainage or septal hematoma. Throat without erythema, tonsillar hypertrophy or exudate. Uvula midline. Airway patent. NECK: Trachea midline. Supple, nontender, no meningeal signs. CARDIOVASCULAR: RRR, no murmur. RESPIRATORY: Clear to auscultation. Breath sounds equal bilaterally. No wheezes , rales, or rhonchi. GASTROINTESTINAL: Abdomen soft, non-tender, nondistended. MUSCULOSKELETAL: Extremities without clubbing, cyanosis, or edema. NEUROLOGICAL: Awake and alert. Grossly non focal Psych: cooperative IV line sites with no e.o infection. Laboratory Laboratory Tests Test 12/26/16 12/26/16 07:53 08:50 Creatinine 0.85 Estimat Glomerular Filtration 103 Rate Vancomycin Level Trough 18.0 Date/Time Procedure Status Source Growth 12/25/16 14:14 Gram Stain - Final Resulted Fluid Other 12/25/16 14:14 Body Fluid Culture Resulted Fluid Other Pending 12/25/16 14:14 Fungal Smear - Final Resulted Fluid Other NO FUNGAL ELEMENTS SEEN. 12/25/16 14:14 Fungal Culture Resulted Fluid Other Pending 12/25/16 14:14 Acid Fast Stain Received Fluid Other Pending 12/25/16 14:14 Mycobacterial Culture Received Fluid Other Pending 12/24/16 20:01 Aerobic Blood Culture - Preliminary Resulted Blood Peripheral NO GROWTH IN 2 DAYS 12/24/16 20:01 Anaerobic Blood Culture - Preliminary Resulted Blood Peripheral NO GROWTH IN 2 DAYS Result Diagram: 12/25/16 0719 12/26/16 0753 Imaging Last Impressions Needle Biopsy/Aspiration X-Ray 12/25/16 0000 Signed Impressions: Service Date/Time: December 14:37 - CONCLUSION: Uncomplicated needle aspiration of L3-4 disc space yielding scant amount of serosanguineous fluid. The entire sample was submitted for Gram stain and C&S. Aldo Cronin MD Lumbar Spine MRI 12/24/16 0000 Signed Impressions: Service Date/Time: Saturday, December 24, 2016 15:12 - CONCLUSION: Discitis at the L3-4 level destroying the endplates of L3 and L4 with an epidural component. Wes Mukherjee MD FACR Assessment and Plan Assessment and Plan Lumbar Discitis possible epidural abscess. H/o trauma to right arm self treated with antibiotics prior to the back pain episode. H/o night sweats. Chronic back pain Recs: Continue Ceftazidime Continue Vanco IV (target 15-20) DC Flagyl IV Follow cultures Follow clinically. Reviewed notes by ortho and neurosurgery. Reviewed imaging. [place] patient and plan for [facility] IV antibiotics. No PICC till cleared by ID. Keven case management: will need geometrician IV antibiotics. Will follow prn over the weekend. If any positive cultures please call me as I am information technology director this weekend. Neyda Clarke MD Dec 26, 2016 13:46
[2016-12-26 14:30] VITALS: BP 145/85; PULSE 68; RESP 20; TEMP 97.4; O2SAT 99
--- NOTE | 2016-12-26 15:08 | HHI.PR ---
Subjective Remarks Still having a lot of pain, couldn't do much w PT today secondary to the back pain, denies any CP/SOB/N/V Objective Vitals Vital Signs Date Time Temp Pulse Resp B/P Pulse Ox O2 Delivery O2 Flow Rate FiO2 12/26/16 11:30 98.5 65 19 124/64 98 12/26/16 09:38 97.9 68 18 129/77 98 12/26/16 00:00 98.3 72 20 116/69 99 12/25/16 20:00 98.6 67 20 126/80 98 12/25/16 16:08 98.1 77 21 143/79 100 I/O 12/25/16 12/25/16 12/25/16 12/26/16 12/26/16 12/26/16 07:00 15:00 23:00 07:00 15:00 23:00 Intake Total 200 ml 240 ml Output Total 875 ml 450 ml Balance 200 ml -635 ml -450 ml Intake Oral 200 ml 240 ml Output Urine Total 875 ml 450 ml # Voids 1 1 # Bowel Movements 0 0 0 Result Diagram: 12/25/16 0719 12/26/16 0753 Imaging Last Impressions Needle Biopsy/Aspiration X-Ray 12/25/16 0000 Signed Impressions: Service Date/Time: December 14:37 - CONCLUSION: Uncomplicated needle aspiration of L3-4 disc space yielding scant amount of serosanguineous fluid. The entire sample was submitted for Gram stain and C&S. Aldo Cronin MD Lumbar Spine MRI 12/24/16 0000 Signed Impressions: Service Date/Time: Saturday, December 24, 2016 15:12 - CONCLUSION: Discitis at the L3-4 level destroying the endplates of L3 and L4 with an epidural component. Wes Mukherjee MD FACR Objective Remarks GENERAL: This is a well-nourished, well-developed patient, in no apparent distress. CARDIOVASCULAR: Regular rate and rhythm without murmurs. RESPIRATORY: Clear to auscultation. Breath sounds equal bilaterally. No wheezes GASTROINTESTINAL: Abdomen soft, non-tender, nondistended. No guarding. MUSCULOSKELETAL: Extremities without edema. He does have difficulty lifting his lower extremities against resistance especially on the left more than the right. He is able to flex and extend his feet. Upper extremity strength is a 5 out of 5. pain with palpation in the lumbar area. He is able to roll for me to auscultate him but has pain NEUROLOGICAL: Awake and alert. Cranial nerves II through XII intact. Normal speech A/P Assessment and Plan Patient admitted for discitis: Neurosurgery evaluated the patient and ordered lumbar disc aspiration/biopsy. fluid cultures pending. blood cx neg x 2 days Patient was started on IV vancomycin, Flagyl and ceftazidime in the ED. ID evaluated the pt and d/c flagyl and recommends continuing the vanco and ceftazidime. 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 Orthopedic surgery evaluated the pt and recommends using brace when out of bed and non op management. Continue pain control with [place] as needed for pain and Dilaudid for breakthrough pain. I did increased dose of dilaudid to 1 mg q4hrs prn, I will add toradol IV for 3 days. Physical therapy following. CRP and ESR elevated. Stool softeners as needed in place for bowel regiment. Discharge Planning f/u fluid cultures. awaiting final recs from ID once cultures finalized Shama Jaimes MD Dec 26, 2016 15:08
[2016-12-26] MEDS: KETOROLAC TROMETHAMINE 30 MG/ML (IVP) VIAL IV PUSH SCH (18:04)
[2016-12-26 18:52] LABS: BLOOD, URINE NEG (NEG); COMMENT (UR) CULT NOT INDICATED; GLUCOSE,URINE NEG (NEG); KETONE, URINE NEG (NEG); NITRITE,URINE NEG (NEG); PH, URINE 5.5 (5.0-8.5); URINE COLOR YELLOW (YELLW/STRAW)
[2016-12-26 20:00] VITALS: BP 127/79; PULSE 65; RESP 20; TEMP 98.8; O2SAT 99
[2016-12-26 22:06] LABS: ALT (GPT) 21 U/L (12-78); ANION GAP 7 MEQ/L (5-15); AST (GOT) 13 U/L (15-37); BICARBONATE 29.1 MEQ/L (21.0-32.0); BLOOD UREA NITROGEN 10 MG/DL (7-18); CHLORIDE 105 MEQ/L (98-107); GLOMERULAR FILTRATION RATE 108 ML/MIN (>89); POTASSIUM 3.4 MEQ/L (3.5-5.1); SODIUM (NA) 141 MEQ/L (136-145)
[2016-12-26 22:09] LABS: ALKALINE PHOSPHATASE 84 U/L (45-117); TOTAL BILIRUBIN ADULT 0.4 MG/DL (0.2-1.0)
[2016-12-27] VITALS (7 sets, daily range): BP systolic 108–153; BP diastolic 61–92; PULSE 45–71; RESP 18–20; TEMP 96.8–98.3; O2SAT 98–100
[2016-12-27] MEDS: VANCOMYCIN 1,500 MG/NS 500 ML IV SCH ×4 (00:17→08:34)
[2016-12-27] MEDS: KETOROLAC TROMETHAMINE 30 MG/ML (IVP) VIAL IV PUSH SCH ×5 (00:17→23:25)
[2016-12-27] MEDS: HYDROmorphone HCL PF 1 MG/ML VIAL IV PUSH PRN ×6 (02:05→23:48)
[2016-12-27] MEDS: ACETAMINOPHEN/HYDROcodone 325 MG/10 MG TAB PO PRN ×4 (03:46→22:46)
[2016-12-27] MEDS: cefTAZidime INJ 2,000 MG in SODIUM CHLORIDE 0.9% INJ 100 ML IV SCH ×2 (04:17→12:02)
--- NOTE | 2016-12-27 07:57 | HHI.PR ---
Subjective Remarks Patient seen and examined this morning. Vitals are stable and afebrile. Intermittent bradycardia. His back pain is improved and states for the first time he was able to sleep. Objective Vital Signs Date Time Temp Pulse Resp B/P Pulse Ox O2 Delivery O2 Flow Rate FiO2 12/27/16 07:01 45 12/27/16 06:37 97.0 54 20 112/61 100 12/26/16 22:38 18 12/26/16 21:25 18 12/26/16 20:00 98.8 65 20 127/79 99 12/26/16 14:30 97.4 68 20 145/85 99 12/26/16 11:30 98.5 65 19 124/64 98 12/26/16 10:20 55 12/26/16 09:38 97.9 68 18 129/77 98 I/O 12/26/16 12/26/16 12/26/16 12/27/16 12/27/16 12/27/16 07:00 15:00 23:00 07:00 15:00 23:00 Intake Total 2469 ml 480 ml Output Total 450 ml 925 ml 700 ml 350 ml Balance -450 ml 1544 ml -220 ml -350 ml Intake Oral 480 ml 480 ml IV Total 1989 ml Output Urine Total 450 ml 925 ml 700 ml 350 ml # Bowel Movements 0 0 0 Result Diagram: 12/25/1671812/26/162124 Imaging Last Impressions Needle Biopsy/Aspiration X-Ray 12/25/16 0000 Signed Impressions: Service Date/Time: December 14:37 - CONCLUSION: Uncomplicated needle aspiration of L3-4 disc space yielding scant amount of serosanguineous fluid. The entire sample was submitted for Gram stain and C&S. Aldo Cronin MD Lumbar Spine MRI 12/24/16 0000 Signed Impressions: Service Date/Time: Saturday, December 24, 2016 15:12 - CONCLUSION: Discitis at the L3-4 level destroying the endplates of L3 and L4 with an epidural component. Wes Mukherjee MD FACR Other Results GENERAL: This is a well-nourished, well-developed patient, in no apparent distress. CARDIOVASCULAR: Regular rate and rhythm without murmurs. RESPIRATORY: Clear to auscultation. Breath sounds equal bilaterally. No wheezes GASTROINTESTINAL: Abdomen soft, non-tender, nondistended. No guarding. MUSCULOSKELETAL: Extremities without edema. He does have difficulty lifting his lower extremities against resistance left> right. He is able to flex and extend his feet. Upper extremity strength is a 5 out of 5. NEUROLOGICAL: Awake and alert. Normal speech A/P Problem List: (1) Discitis of lumbar region ICD Code: M46.46 Assessment and Plan Patient admitted for discitis with possible epidural abscess: - Neurosurgery evaluated the patient and ordered lumbar disc aspiration/biopsy. - fluid cultures pseudomonas, pansensitive blood cx neg x 2 days - Patient was started on IV vancomycin, Flagyl and ceftazidime in the ED. - ID evaluated the pt recommends continuing the vanco and ceftazidime. 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 - Orthopedic surgery evaluated the pt and recommends using brace when out of bed and non op management. - Continue pain control with [place] as needed for pain and Dilaudid 1 mg q4hrs prn, toradol IV for 3 days. Physical therapy following. Discharge Planning Patient will need long-term antibiotics DC pending antibiotic regimen Maricarmen Palmer MD R3 Dec 27, 2016 07:57 Maricarmen Palmer MD R3 Dec 27, 2016 07:57
--- NOTE | 2016-12-27 08:10 | PD.ORT.PN ---
Subjective Subjective Remarks decreased low back pain first time patient has been able to sleep at night for 2 months due to decreased back pain no headaches, no numbness/tingling/weakness in legs Objective Vitals Vital Signs Date Time Temp Pulse Resp B/P Pulse Ox O2 Delivery O2 Flow Rate FiO2 12/27/16 07:01 45 12/27/16 06:37 97.0 54 20 112/61 100 12/26/16 22:38 18 12/26/16 21:25 18 12/26/16 20:00 98.8 65 20 127/79 99 12/26/16 14:30 97.4 68 20 145/85 99 12/26/16 11:30 98.5 65 19 124/64 98 12/26/16 10:20 55 12/26/16 09:38 97.9 68 18 129/77 98 I/O 12/26/16 12/26/16 12/26/16 12/27/16 12/27/16 12/27/16 07:00 15:00 23:00 07:00 15:00 23:00 Intake Total 2469 ml 480 ml Output Total 450 ml 925 ml 700 ml 350 ml Balance -450 ml 1544 ml -220 ml -350 ml Intake Oral 480 ml 480 ml IV Total 1989 ml Output Urine Total 450 ml 925 ml 700 ml 350 ml # Bowel Movements 0 0 0 Result Diagram: 12/25/1671812/26/162124 Objective Remarks seen by Dr. Gustavo Mcginnis tenderness lower lumbar spine motor is +5/5 to LE negative babinski neg homans sign, no calf tenderness Assessment & Plan Assessment and Plan Lumbar diskitis- awaiting cx, prelim. cx showed gram neg dominique continue IV abx per infectious disease back brace when out of bed Gustavo Mcginnis MD Dec 27, 2016 08:10
[2016-12-27] MEDS: POLYETHYLENE GLYCOL 17 GM PKG PO SCH (08:34)
[2016-12-27] MEDS: SODIUM CHLORIDE 0.9% FLUSH 10 ML FLUSH IV FLUSH SCH ×2 (08:34→21:36)
[2016-12-27] MEDS ORDERED: INFLUENZA VIRUS VACCINE (QUADRIVALENT) 0.5 ML SYR IM ONE (09:00)
--- NOTE | 2016-12-27 13:08 | HHI.IDPN ---
Subjective Subjective Remarks is a 36 y/o CM with with no significant PMHx of chronic back pain. Patient reports to me that approx. 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 He took it upon himself to treat his infected wound with doxycycline left over from family prescriptions. He thinks this helped and the wound healed. He admits that he should not have done this and feels that this might have caused the problem in his back. He states that he started having back pain 2 months ago. He also reports night sweats and continuing back pain. He went to see a chiropractor because he thought he had adjustment issues with his back, the chiropractor immediately ordered an MRI of his back and found that he had bulging disks. He finally got a referral to see Dr. Rob yesterday who did imaging of his back and after reviewing it recommended that he go straight to the emergency room for further evaluation. He tells me that his pain is about a 9 out of 10 especially when he moves, tries to sit or stand. Coughing and sneezing make things worse as well.He currently denies any chest pain, shortness of breath, nausea or vomiting. He denies any fevers or chills at this time. He denies any abdominal pain. He denies any bladder or bowel incontinence. He does endorse night sweats off and on since last 3 months. ID consulted for evaluation and Mment of infectious etiology discitis ? epidural abscess. Overnight events reviewed No fever No rash No diarrhea Back pain better. Antibiotics Ceftaz Vanco IV Lines Line sites with no e.o infection Past Medical History reviewed Allergies: Coded Allergies: No Known Allergies (Unverified , 12/24/16) Objective . Vital Signs Date Time Temp Pulse Resp B/P Pulse Ox O2 Delivery O2 Flow Rate FiO2 12/27/16 12:09 98.3 71 18 153/92 98 12/27/16 08:53 96.8 57 18 108/62 98 12/27/16 07:01 45 12/27/16 06:37 97.0 54 20 112/61 100 12/26/16 22:38 18 12/26/16 21:25 18 12/26/16 20:00 98.8 65 20 127/79 99 12/26/16 14:30 97.4 68 20 145/85 99 12/26/16 12/26/16 12/27/16 15:00 23:00 07:00 Intake Total 2469 ml 480 ml Output Total 925 ml 700 ml 350 ml Balance 1544 ml -220 ml -350 ml Intake Oral 480 ml 480 ml IV Total 1989 ml Output Urine Total 925 ml 700 ml 350 ml # Bowel Movements 0 0 . Laboratory Tests Test 12/26/16 12/26/16 12/27/16 07:53 21:25 07:41 Creatinine 0.85 MG/DL 0.82 MG/DL 0.76 MG/DL Estimat Glomerular Filtration 103 ML/MIN 108 ML/MIN 117 ML/MIN Rate Sodium Level 141 MEQ/L Potassium Level 3.4 MEQ/L Chloride Level 105 MEQ/L Carbon Dioxide Level 29.1 MEQ/L Anion Gap 7 MEQ/L Blood Urea Nitrogen 10 MG/DL Random Glucose 97 MG/DL Calcium Level 8.4 MG/DL Total Bilirubin 0.4 MG/DL Aspartate Amino Transf 13 U/L (AST/SGOT) Alanine Aminotransferase 21 U/L (ALT/SGPT) Alkaline Phosphatase 84 U/L Total Protein 6.7 GM/DL Albumin 2.5 GM/DL Microbiology Date/Time Procedure Status Source Growth 12/24/16 17:00 Aerobic Blood Culture - Preliminary Resulted Blood Peripheral NO GROWTH IN 3 DAYS 12/24/16 17:00 Anaerobic Blood Culture - Preliminary Resulted Blood Peripheral NO GROWTH IN 3 DAYS 12/24/16 20:01 Aerobic Blood Culture - Preliminary Resulted Blood Peripheral NO GROWTH IN 3 DAYS 12/24/16 20:01 Anaerobic Blood Culture - Preliminary Resulted Blood Peripheral NO GROWTH IN 3 DAYS 12/25/16 14:14 Gram Stain - Final Complete Fluid Other 12/25/16 14:14 Body Fluid Culture - Final Complete Pseudomonas Aeruginosa 12/25/16 14:14 Acid Fast Stain - Final Resulted Fluid Other NO ACID FAST BACILLI SEEN 12/25/16 14:14 Mycobacterial Culture Resulted Fluid Other Pending 12/25/16 14:14 Fungal Smear - Final Resulted Fluid Other NO FUNGAL ELEMENTS SEEN. 12/25/16 14:14 Fungal Culture Resulted Fluid Other Pending Imaging Last Impressions Needle Biopsy/Aspiration X-Ray 12/25/16 0000 Signed Impressions: Service Date/Time: December 14:37 - CONCLUSION: Uncomplicated needle aspiration of L3-4 disc space yielding scant amount of serosanguineous fluid. The entire sample was submitted for Gram stain and C&S. Aldo Cronin MD Lumbar Spine MRI 12/24/16 0000 Signed Impressions: Service Date/Time: Saturday, December 24, 2016 15:12 - CONCLUSION: Discitis at the L3-4 level destroying the endplates of L3 and L4 with an epidural component. Wes Mukherjee MD FACR Physical Exam GENERAL: This is a well-nourished, well-developed patient, in no apparent distress. SKIN: No rashes, ecchymoses or lesions. Cool and dry. HEAD: Atraumatic. Normocephalic. No temporal or scalp tenderness. EYES: Pupils equal round and reactive. Extraocular motions intact. No scleral icterus. No injection or drainage. ENT: Nose without bleeding, purulent drainage or septal hematoma. Throat without erythema, tonsillar hypertrophy or exudate. Uvula midline. Airway patent. NECK: Trachea midline. Supple, nontender, no meningeal signs. CARDIOVASCULAR: RRR, no murmur. RESPIRATORY: Clear to auscultation. Breath sounds equal bilaterally. No wheezes , rales, or rhonchi. GASTROINTESTINAL: Abdomen soft, non-tender, nondistended. MUSCULOSKELETAL: Extremities without clubbing, cyanosis, or edema. NEUROLOGICAL: Awake and alert. Grossly non focal Psych: cooperative IV line sites with no e.o infection. Assessment & Plan Remarks Lumbar Discitis possible epidural abscess. H/o trauma to right arm self treated with antibiotics prior to the back pain episode. H/o night sweats. Chronic back pain Recs: DC Ceftazidime DC Vanco IV (target 15-20) Start Cefepime IV (PSAE doses needed) Follow cultures Follow clinically. D.w patient plan for ad terminal makeup operator IV antibiotics( 6 wks IV followed by oral suppression). No PICC till cleared by ID. D.w case management: will need ad terminal makeup operator IV antibiotics. Will follow prn over the weekend. If any new issues please call me as I am guest relations executive this weekend. Neyda Clarke MD Dec 27, 2016 13:08
[2016-12-27] MEDS: CEFEPIME INJ 2,000 MG in SODIUM CHLORIDE 0.9% INJ 100 ML IV SCH ×2 (17:48→22:46)
[2016-12-28] VITALS (7 sets, daily range): BP systolic 105–138; BP diastolic 67–86; PULSE 52–69; RESP 18–19; TEMP 96.9–98.7; O2SAT 97–100
[2016-12-28] MEDS: HYDROmorphone HCL PF 1 MG/ML VIAL IV PUSH PRN ×5 (04:27→21:11)
[2016-12-28] MEDS: KETOROLAC TROMETHAMINE 30 MG/ML (IVP) VIAL IV PUSH SCH ×4 (06:03→23:42)
[2016-12-28] MEDS: CEFEPIME INJ 2,000 MG in SODIUM CHLORIDE 0.9% INJ 100 ML IV SCH ×3 (06:04→23:42)
[2016-12-28] MEDS: ACETAMINOPHEN/HYDROcodone 325 MG/10 MG TAB PO PRN ×4 (06:04→23:44)
[2016-12-28] MEDS: POLYETHYLENE GLYCOL 17 GM PKG PO SCH (08:29)
[2016-12-28] MEDS: SODIUM CHLORIDE 0.9% FLUSH 10 ML FLUSH IV FLUSH SCH ×2 (08:29→21:12)
--- NOTE | 2016-12-28 09:01 | PD.ORT.PN ---
Subjective Subjective Remarks L3-4 pseudomonas aeruginosa diskitis continued decreased low back pain with physical activities first time patient has been able to sleep at night for 2 months due to decreased back pain no headaches, no numbness/tingling/weakness in legs Objective Vitals Vital Signs Date Time Temp Pulse Resp B/P Pulse Ox O2 Delivery O2 Flow Rate FiO2 12/28/16 08:14 97.6 59 18 119/76 100 12/28/16 04:00 96.9 56 18 112/76 99 12/27/16 20:41 57 12/27/16 20:00 97.9 68 18 139/76 98 12/27/16 16:00 98.1 67 18 149/74 98 12/27/16 12:09 98.3 71 18 153/92 98 I/O 12/27/16 12/27/16 12/27/16 12/28/16 12/28/16 12/28/16 06:59 14:59 22:59 06:59 14:59 22:59 Intake Total 685 ml 200 ml Output Total 350 ml 400 ml 725 ml Balance -350 ml -400 ml -40 ml 200 ml IV Total 685 ml 200 ml Output Urine Total 350 ml 400 ml 725 ml # Voids 2 1 # Bowel Movements 0 1 Result Diagram: 12/25/16 0719 12/27/16 0741 Objective Remarks seen by Dr. Gustavo Mcginnis tenderness lower lumbar spine motor is +5/5 to LE negative babinski neg homans sign, no calf tenderness Assessment & Plan Assessment and Plan L3-4 pseudomonas aeruginosa diskitis; sensitive to all antibiotics including levaquin I.D. started IV cefepime 2 grams q 8 hrs back brace when out of bed Gustavo Mcginnis MD Dec 28, 2016 09:01
--- NOTE | 2016-12-28 11:47 | HHI.PR ---
Subjective Remarks no complains- pain controlled voiding spontaneously Objective Vitals Vital Signs Date Time Temp Pulse Resp B/P Pulse Ox O2 Delivery O2 Flow Rate FiO2 12/28/16 09:42 52 12/28/16 08:14 97.6 59 18 119/76 100 12/28/16 04:00 96.9 56 18 112/76 99 12/27/16 20:41 57 12/27/16 20:00 97.9 68 18 139/76 98 12/27/16 16:00 98.1 67 18 149/74 98 12/27/16 12:09 98.3 71 18 153/92 98 I/O 12/27/16 12/27/16 12/27/16 12/28/16 12/28/16 12/28/16 07:00 15:00 23:00 07:00 15:00 23:00 Intake Total 685 ml 200 ml Output Total 350 ml 400 ml 725 ml Balance -350 ml -400 ml -40 ml 200 ml IV Total 685 ml 200 ml Output Urine Total 350 ml 400 ml 725 ml # Voids 2 1 # Bowel Movements 0 1 Result Diagram: 12/25/16 0719 12/27/16 0741 Imaging Last Impressions Needle Biopsy/Aspiration X-Ray 12/25/16 0000 Signed Impressions: Service Date/Time: December 14:37 - CONCLUSION: Uncomplicated needle aspiration of L3-4 disc space yielding scant amount of serosanguineous fluid. The entire sample was submitted for Gram stain and C&S. Aldo Cronin MD Lumbar Spine MRI 12/24/16 0000 Signed Impressions: Service Date/Time: Saturday, December 24, 2016 15:12 - CONCLUSION: Discitis at the L3-4 level destroying the endplates of L3 and L4 with an epidural component. Wes Mukherjee MD FACR Objective Remarks awake and alert, NAD anicteric lungs clear regular rhythm abdomen soft, nontender extremities no edema A/P Assessment and Plan 36 years old male \ Pseudomonas discitis with possible epidural abscess: - Neurosurgery evaluated the patient and ordered lumbar disc aspiration/biopsy. - fluid cultures pseudomonas, pansensitive blood cx neg x 2 days - Orthopedic surgery evaluated the pt and recommends using brace when out of bed and non op management. - Continue pain control with [place] as needed for pain and Dilaudid 1 mg q4hrs prn, - antibiotics- switched to Cefepime 12/27- -- no PICC till cleared with ID Physical therapy following. Discharge Planning Patient will need long-term antibiotics Roselia Jenkins MD Dec 28, 2016 11:47 Roselia Jenkins MD Dec 28, 2016 11:47 am
--- NOTE | 2016-12-28 13:54 | HHI.IDPN ---
Subjective Subjective Remarks is a 36 y/o CM with with no significant PMHx of chronic back pain. Patient reports to me that approx. 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 He took it upon himself to treat his infected wound with doxycycline left over from family prescriptions. He thinks this helped and the wound healed. He admits that he should not have done this and feels that this might have caused the problem in his back. He states that he started having back pain 2 months ago. He also reports night sweats and continuing back pain. He went to see a chiropractor because he thought he had adjustment issues with his back, the chiropractor immediately ordered an MRI of his back and found that he had bulging disks. He finally got a referral to see Dr. Rob yesterday who did imaging of his back and after reviewing it recommended that he go straight to the emergency room for further evaluation. He tells me that his pain is about a 9 out of 10 especially when he moves, tries to sit or stand. Coughing and sneezing make things worse as well.He currently denies any chest pain, shortness of breath, nausea or vomiting. He denies any fevers or chills at this time. He denies any abdominal pain. He denies any bladder or bowel incontinence. He does endorse night sweats off and on since last 3 months. ID consulted for evaluation and Mment of infectious etiology discitis ? epidural abscess. Overnight events reviewed No fever No rash No diarrhea Back pain better. Antibiotics Ceftaz Vanco IV Lines Line sites with no e.o infection Past Medical History reviewed Allergies: Coded Allergies: No Known Allergies (Unverified , 12/24/16) Objective . Vital Signs Date Time Temp Pulse Resp B/P Pulse Ox O2 Delivery O2 Flow Rate FiO2 12/28/16 12:09 98.7 69 18 105/67 97 12/28/16 09:42 52 12/28/16 08:14 97.6 59 18 119/76 100 12/28/16 04:00 96.9 56 18 112/76 99 12/27/16 20:41 57 12/27/16 20:00 97.9 68 18 139/76 98 12/27/16 16:00 98.1 67 18 149/74 98 12/27/16 12/27/16 12/28/16 15:00 23:00 07:00 Intake Total 685 ml Output Total 400 ml 725 ml Balance -400 ml -40 ml IV Total 685 ml Output Urine Total 400 ml 725 ml # Voids 2 1 # Bowel Movements 1 . Laboratory Tests Test 12/26/16 12/27/16 21:25 07:41 Sodium Level 141 MEQ/L Potassium Level 3.4 MEQ/L Chloride Level 105 MEQ/L Carbon Dioxide Level 29.1 MEQ/L Anion Gap 7 MEQ/L Blood Urea Nitrogen 10 MG/DL Creatinine 0.82 MG/DL 0.76 MG/DL Estimat Glomerular Filtration 108 ML/MIN 117 ML/MIN Rate Random Glucose 97 MG/DL Calcium Level 8.4 MG/DL Total Bilirubin 0.4 MG/DL Aspartate Amino Transf 13 U/L (AST/SGOT) Alanine Aminotransferase 21 U/L (ALT/SGPT) Alkaline Phosphatase 84 U/L Total Protein 6.7 GM/DL Albumin 2.5 GM/DL Microbiology Date/Time Procedure Status Source Growth 12/25/16 14:14 Gram Stain - Final Complete Fluid Other 12/25/16 14:14 Body Fluid Culture - Final Complete Pseudomonas Aeruginosa 12/25/16 14:14 Acid Fast Stain - Final Resulted Fluid Other NO ACID FAST BACILLI SEEN 12/25/16 14:14 Mycobacterial Culture Resulted Fluid Other Pending 12/25/16 14:14 Fungal Smear - Final Resulted Fluid Other NO FUNGAL ELEMENTS SEEN. 12/25/16 14:14 Fungal Culture Resulted Fluid Other Pending Imaging Last Impressions Needle Biopsy/Aspiration X-Ray 12/25/16 0000 Signed Impressions: Service Date/Time: December 14:37 - CONCLUSION: Uncomplicated needle aspiration of L3-4 disc space yielding scant amount of serosanguineous fluid. The entire sample was submitted for Gram stain and C&S. Aldo Cronin MD Lumbar Spine MRI 12/24/16 0000 Signed Impressions: Service Date/Time: Saturday, December 24, 2016 15:12 - CONCLUSION: Discitis at the L3-4 level destroying the endplates of L3 and L4 with an epidural component. Wes Mukherjee MD FACR Physical Exam GENERAL: This is a well-nourished, well-developed patient, in no apparent distress. SKIN: No rashes, ecchymoses or lesions. Cool and dry. HEAD: Atraumatic. Normocephalic. No temporal or scalp tenderness. EYES: Pupils equal round and reactive. Extraocular motions intact. No scleral icterus. No injection or drainage. ENT: Nose without bleeding, purulent drainage or septal hematoma. Throat without erythema, tonsillar hypertrophy or exudate. Uvula midline. Airway patent. NECK: Trachea midline. Supple, nontender, no meningeal signs. CARDIOVASCULAR: RRR, no murmur. RESPIRATORY: Clear to auscultation. Breath sounds equal bilaterally. No wheezes , rales, or rhonchi. GASTROINTESTINAL: Abdomen soft, non-tender, nondistended. MUSCULOSKELETAL: Extremities without clubbing, cyanosis, or edema. NEUROLOGICAL: Awake and alert. Grossly non focal Psych: cooperative IV line sites with no e.o infection. Assessment & Plan Remarks Lumbar Discitis possible epidural abscess. H/o trauma to right arm self treated with antibiotics prior to the back pain episode. H/o night sweats. Chronic back pain Recs: DC Ceftazidime DC Vanco IV (target 15-20) Continue Cefepime IV (PSAE doses needed) Follow cultures Follow clinically. D.w patient plan: ECHO to decide if endocarditis or not. If no e/o endocarditis on ECHO will DC on oral Cipro 750 mg po q12hrs for 10 weeks. If Endocarditis will need IV ABX. D.w dba developer to have ECHO prioritized. D.w case management: above plan. Will follow in am after ECHO to provide a plan. NO PICC needed at present time. Neyda Clarke MD Dec 28, 2016 13:54
[2016-12-29] VITALS: BP 115/64; PULSE 53; RESP 18; TEMP 97.3; O2SAT 100
[2016-12-29] MEDS: HYDROmorphone HCL PF 1 MG/ML VIAL IV PUSH PRN ×2 (01:38→05:47)
[2016-12-29 04:00] VITALS: BP 118/64; PULSE 56; RESP 18; TEMP 96.6; O2SAT 97
[2016-12-29] MEDS: KETOROLAC TROMETHAMINE 30 MG/ML (IVP) VIAL IV PUSH SCH ×2 (06:30→12:42)
[2016-12-29] MEDS: CEFEPIME INJ 2,000 MG in SODIUM CHLORIDE 0.9% INJ 100 ML IV SCH (06:31)
[2016-12-29] MEDS: ACETAMINOPHEN/HYDROcodone 325 MG/10 MG TAB PO PRN ×2 (06:31→12:41)
[2016-12-29 08:00] VITALS: BP 107/65; PULSE 62; RESP 16; TEMP 97.4; O2SAT 96
[2016-12-29] MEDS: SODIUM CHLORIDE 0.9% FLUSH 10 ML FLUSH IV FLUSH SCH (09:55)
[2016-12-29] MEDS: POLYETHYLENE GLYCOL 17 GM PKG PO SCH (09:55)
[2016-12-29] MEDS ORDERED: HYDROmorphone HCL PF 1 MG/ML VIAL IV PUSH PRN (10:00)
--- NOTE | 2016-12-29 10:53 | HHI.PR ---
Subjective Remarks feels great, no complains Objective Vitals Vital Signs Date Time Temp Pulse Resp B/P Pulse Ox O2 Delivery O2 Flow Rate FiO2 12/29/16 08:00 97.4 62 16 107/65 96 12/29/16 04:00 96.6 56 18 118/64 97 12/29/16 00:00 97.3 53 18 115/64 100 12/28/16 20:04 66 12/28/16 20:00 98.2 56 18 138/76 98 12/28/16 16:02 98.4 62 19 138/86 98 12/28/16 12:09 98.7 69 18 105/67 97 I/O 12/28/16 12/28/16 12/28/16 12/29/16 12/29/16 12/29/16 07:00 15:00 23:00 07:00 15:00 23:00 Intake Total 200 ml 200 ml Output Total 1000 ml Balance 200 ml -1000 ml 200 ml IV Total 200 ml 200 ml Output Urine Total 1000 ml # Voids 1 1 3 Result Diagram: 12/25/16 0719 12/29/16 0656 Imaging Last Impressions Needle Biopsy/Aspiration X-Ray 12/25/16 0000 Signed Impressions: Service Date/Time: December 14:37 - CONCLUSION: Uncomplicated needle aspiration of L3-4 disc space yielding scant amount of serosanguineous fluid. The entire sample was submitted for Gram stain and C&S. Aldo Cronin MD Lumbar Spine MRI 12/24/16 0000 Signed Impressions: Service Date/Time: Saturday, December 24, 2016 15:12 - CONCLUSION: Discitis at the L3-4 level destroying the endplates of L3 and L4 with an epidural component. Wes Mukherjee MD FACR Objective Remarks awake and alert, NAD anicteric lungs clear regular rhythm abdomen soft, nontender extremities no edema move all extremities spontaenously A/P Assessment and Plan 36 years old male \ Pseudomonas discitis with possible epidural abscess: - Neurosurgery ff - Orthopedic surgery evaluated the pt and recommends using brace when out of bed and non op management. - Continue pain control with [place] as needed for pain - antibiotics- switched to Cefepime 12/27- -- no PICC till cleared with ID - Echo done 12/28- awaiting results - if negative - may be DC on Ciprofloxacin 750 mg po bid x 10 weeks Physical therapy following. Discharge Planning Patient will need long-term antibiotics Roselia Jenkins MD Dec 29, 2016 10:52
--- NOTE | 2016-12-29 11:00 | EC ---
Study Study Date:12/29/2016 STUDY CONCLUSIONS SUMMARY LEFT VENTRICLE: The cavity size was normal. Wall thickness was normal. Systolic function was normal. The estimated ejection fraction was in the range of 55% to 60%. Wall motion was normal; there were no regional wall motion abnormalities. Left ventricular diastolic function parameters were normal. If LV function is below 40, please consider prescribing an ACEI or ARB or document rationale for non-use. PROCEDURE DATA STUDY STATUS: Elective. Procedure: Transthoracic echocardiography. Image quality was good. Scanning was performed from the parasternal, apical, and subcostal acoustic windows. Study completion: The patient tolerated the procedure well. Transthoracic echocardiography. M-mode, complete 2D, complete spectral Doppler, and color Doppler. Patient status: Inpatient. CARDIAC ANATOMY LEFT VENTRICLE: The cavity size was normal. Wall thickness was normal. Systolic function was normal. The estimated ejection fraction was in the range of 55% to 60%. Wall motion was normal; there were no regional wall motion abnormalities. The transmitral flow pattern was normal. The deceleration time of the early transmitral flow velocity was normal. The pulmonary vein flow pattern was normal. The tissue Doppler parameters were normal. Left ventricular diastolic function parameters were normal. AORTIC VALVE: Trileaflet; normal thickness leaflets. Doppler: Transvalvular velocity was within the normal range. There was no stenosis. No regurgitation. AORTA: Aortic root: The aortic root was normal in size. MITRAL VALVE: Structurally normal valve. Doppler: Transvalvular velocity was within the normal range. There was no evidence for stenosis. No regurgitation. LEFT ATRIUM: The atrium was normal in size. RIGHT VENTRICLE: The cavity size was normal. Wall thickness was normal. PULMONIC VALVE: Doppler: Transvalvular velocity was within the normal range. There was no evidence for stenosis. No regurgitation. TRICUSPID VALVE: Structurally normal valve. Doppler: Transvalvular velocity was within the normal range. No regurgitation. PULMONARY ARTERY: The main pulmonary artery was normal-sized. Systolic pressure was within the normal range. RIGHT ATRIUM: The atrium was normal in size. PERICARDIUM: There was no pericardial effusion. SYSTEMIC VEINS: Inferior vena cava: The vessel was normal in size. BASIC MEASUREMENTS ADULT NORMAL Left ventricle LV internal dimension, ED, chordal level, *36.3 mm 43-52 PLAX LV internal dimension, ES, chordal level, 26.8 mm 23-38 PLAX Fractional shortening, chordal level, PLAX *26 % >29 LV posterior wall thickness, ED 12.3 mm IVS/LVPW ratio, ED 1.16 <1.3 Ventricular septum Septal thickness, ED 14.3 mm Aortic valve Leaflet separation 17 mm 15-26 Right ventricle RV internal dimension, ED, PLAX 24.5 mm 19-38 BASIC MEASUREMENTS ADULT NORMAL Aortic valve Leaflet separation 17 mm 15-26 Aorta Root diameter, ED 30 mm 20-37 Left atrium Anterior-posterior dimension, ES 40 mm 19-40 LA/aortic root ratio 1.33 DOPPLER MEASUREMENTS ADULT NORMAL Mitral valve Peak E-wave velocity 55.3 cm/s Peak A-wave velocity 42.4 cm/s Peak E/A ratio 1.3 LEGEND: Mean values are shown as u=mean value. Asterisk (*) thomas values outside specified normal range. Prepared and signed by Ronnie Castellanos [id number]
[2016-12-29 11:55] VITALS: BP 127/71; PULSE 56; RESP 18; TEMP 97.8; O2SAT 97
[2016-12-29 12:24] VITALS: PULSE 49
[2016-12-29] MEDS ORDERED: CIPR250T52 PO (13:10)
[2016-12-29] MEDS ORDERED: fentaNYL 25 MCG/HR PATCH T-DERMAL ONE (13:30)
[2016-12-29] MEDS ORDERED: FENT25DI T-DERMAL (13:34)
[2016-12-29 13:56] VITALS: RESP 18
--- NOTE | 2016-12-29 14:30 | HHI.DS ---
Discharge Summary Admission Date December 24, 2016 at 19:20 Discharge Date: Dec 29, 2016 Admitting Diagnosis discitis with epidural component (1) Discitis of lumbar region ICD Code: M46.46 Diagnosis: Principal (2) Pseudomonas aeruginosa infection ICD Code: A49.8 Diagnosis: Principal Procedures none Brief History - From Admission He is a 36-year-old male with no past medical history. 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 He research how to treat the infection on online and apparently he used family members antibiotics to treat himself. Per patient, his wound healed nicely. He admits that he should not have done this and feels that this might have caused the problem in his back. He states that he started having back pain 2 months ago. He went to see a chiropractor because he thought he had adjustment issues with his back, the chiropractor immediately ordered an MRI of his back and found that he had bulging disks. He finally got a referral to see Dr. Rob yesterday who did imaging of his back and after reviewing it recommended that he go straight to the emergency room for further evaluation. He tells me that his pain is about a 9 out of 10 especially when he moves, tries to sit or stand. Coughing and sneezing make things worse as well. He currently denies any chest pain, shortness of breath, nausea or vomiting. He denies any fevers or chills at this time. He denies any abdominal pain. He denies any bladder or bowel incontinence. CBC/BMP: 12/25/16 0719 12/29/16 1139 Significant Findings Laboratory Tests Test 12/26/16 12/29/16 21:25 11:39 Potassium Level 3.4 MEQ/L 3.4 MEQ/L (3.5-5.1) (3.5-5.1) Calcium Level 8.4 MG/DL (8.5-10.1) Aspartate Amino Transf 13 U/L (15-37) (AST/SGOT) Albumin 2.5 GM/DL (3.4-5.0) Imaging Last Impressions Needle Biopsy/Aspiration X-Ray 12/25/16 0000 Signed Impressions: Service Date/Time: December 14:37 - CONCLUSION: Uncomplicated needle aspiration of L3-4 disc space yielding scant amount of serosanguineous fluid. The entire sample was submitted for Gram stain and C&S. Aldo Cronin MD Lumbar Spine MRI 12/24/16 0000 Signed Impressions: Service Date/Time: Saturday, December 24, 2016 15:12 - CONCLUSION: Discitis at the L3-4 level destroying the endplates of L3 and L4 with an epidural component. Wes Mukherjee MD FACR PE at Discharge awake and alert, NAD anicteric lungs clear regular rhythm abdomen soft, nontender extremities no edema move all extremities spontaenously Pt update on day of discharge awake and alert, NAD feels great Hospital Course 36 years old male \ Pseudomonas discitis with possible epidural abscess: - Neurosurgery ff - Orthopedic surgery evaluated the pt and recommends using brace when out of bed and non op management. - Continue pain control with [place] as needed for pain - antibiotics- switched to Cefepime 12/27- -- no PICC till cleared with ID - Echo done 12/28- negative - DC on Ciprofloxacin 750 mg po bid x 10 weeks OP ff up with PCP OP ff up with Orthopedics Pt Condition on Discharge: Stable Discharge Disposition: Discharge Home Discharge Time: <= 30 minutes Discharge Instructions DIET: Follow Instructions for: As Tolerated, No Restrictions Speech Therapy-Diet Recommends: Regular Activities you can perform: Weight Bearing as Paulo Follow up Referrals: Orthopedics - 2 Weeks with Gustavo Mcginnis MD PCP Follow-up - 01/08/17 with [facility]EE New Medications: Ciprofloxacin (Cipro) 250 Mg Tab 750 MG PO BID discitis Days 60 Ref 0 TAB Fentanyl Patch 72 HR (Fentanyl Patch 72 HR) 25 Mcg/Hr Patch 25 MCG T-DERMAL Q72H Pain Management #5 Ref 0 PATCH Roselia Jenkins MD Dec 29, 2016 14:30
--- NOTE | 2016-12-29 14:44 | HHI.IDPN ---
Subjective Subjective Remarks is a 36 y/o CM with with no significant PMHx of chronic back pain. Patient reports to me that approx. 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 He took it upon himself to treat his infected wound with doxycycline left over from family prescriptions. He thinks this helped and the wound healed. He admits that he should not have done this and feels that this might have caused the problem in his back. He states that he started having back pain 2 months ago. He also reports night sweats and continuing back pain. He went to see a chiropractor because he thought he had adjustment issues with his back, the chiropractor immediately ordered an MRI of his back and found that he had bulging disks. He finally got a referral to see Dr. Rob yesterday who did imaging of his back and after reviewing it recommended that he go straight to the emergency room for further evaluation. He tells me that his pain is about a 9 out of 10 especially when he moves, tries to sit or stand. Coughing and sneezing make things worse as well.He currently denies any chest pain, shortness of breath, nausea or vomiting. He denies any fevers or chills at this time. He denies any abdominal pain. He denies any bladder or bowel incontinence. He does endorse night sweats off and on since last 3 months. ID consulted for evaluation and Mment of infectious etiology discitis ? epidural abscess. Overnight events reviewed No fever No rash No diarrhea Antibiotics Ceftaz Vanco IV Lines Line sites with no e.o infection Past Medical History reviewed Allergies: Coded Allergies: No Known Allergies (Unverified , 12/24/16) Objective . Vital Signs Date Time Temp Pulse Resp B/P Pulse Ox O2 Delivery O2 Flow Rate FiO2 12/29/16 13:56 18 12/29/16 13:56 18 12/29/16 12:24 49 12/29/16 11:55 97.8 56 18 127/71 97 12/29/16 08:00 97.4 62 16 107/65 96 12/29/16 04:00 96.6 56 18 118/64 97 12/29/16 00:00 97.3 53 18 115/64 100 12/28/16 20:04 66 12/28/16 20:00 98.2 56 18 138/76 98 12/28/16 16:02 98.4 62 19 138/86 98 12/28/16 12/28/16 12/29/16 15:00 23:00 07:00 Intake Total 200 ml Output Total 1000 ml Balance 200 ml -1000 ml IV Total 200 ml Output Urine Total 1000 ml # Voids 1 . Laboratory Tests Test 12/29/16 12/29/16 06:56 11:39 Creatinine 0.72 MG/DL Estimat Glomerular Filtration 125 ML/MIN Rate Potassium Level 3.4 MEQ/L Imaging Last Impressions Needle Biopsy/Aspiration X-Ray 12/25/16 0000 Signed Impressions: Service Date/Time: December 14:37 - CONCLUSION: Uncomplicated needle aspiration of L3-4 disc space yielding scant amount of serosanguineous fluid. The entire sample was submitted for Gram stain and C&S. Aldo Cronin MD Lumbar Spine MRI 12/24/16 0000 Signed Impressions: Service Date/Time: Saturday, December 24, 2016 15:12 - CONCLUSION: Discitis at the L3-4 level destroying the endplates of L3 and L4 with an epidural component. Wes Mukherjee MD FACR Physical Exam GENERAL: This is a well-nourished, well-developed patient, in no apparent distress. SKIN: No rashes, ecchymoses or lesions. Cool and dry. HEAD: Atraumatic. Normocephalic. No temporal or scalp tenderness. EYES: Pupils equal round and reactive. Extraocular motions intact. No scleral icterus. No injection or drainage. ENT: Nose without bleeding, purulent drainage or septal hematoma. Throat without erythema, tonsillar hypertrophy or exudate. Uvula midline. Airway patent. NECK: Trachea midline. Supple, nontender, no meningeal signs. CARDIOVASCULAR: RRR, no murmur. RESPIRATORY: Clear to auscultation. Breath sounds equal bilaterally. No wheezes , rales, or rhonchi. GASTROINTESTINAL: Abdomen soft, non-tender, nondistended. MUSCULOSKELETAL: Extremities without clubbing, cyanosis, or edema. NEUROLOGICAL: Awake and alert. Grossly non focal Psych: cooperative IV line sites with no e.o infection. Assessment & Plan Remarks Lumbar Discitis possible epidural abscess. H/o trauma to right arm self treated with antibiotics prior to the back pain episode. H/o night sweats. Chronic back pain Recs: Continue Cefepime IV (PSAE doses needed) Follow cultures Follow clinically. Discharge home on oral Cipro 750 mg po bid for 8 weeks. Follow up with Dr.Reba Meadows. Her office notified. Will need follow up blood work. May need imaging if back pain does not improve. Counseled to avoid consuming milk and milk products, antacids or PPIs while on Cipro for an hour before and after Cipro. Will sign off please call back if any change in clinical condition or questions. Neyda Clarke MD Dec 29, 2016 14:44
== END 2016-12-29 16:06 | disposition home or self-care (01) | DRG 551 ==
LOC: NEPE 11:52 → NEDA 19:20 → N05A 21:52
PROVIDERS: ADMIT Internal Medicine; ATTEND Internal Medicine
PROC: 0S923ZX Drainage of Lumbar Vertebral Disc, Percutaneous Approach, Diagnostic (ICD-10-PCS; principal; 2016-12-25)
DX: M46.46 Discitis, unspecified, lumbar region (principal); G06.1 Intraspinal abscess and granuloma; B96.5 Pseudomonas (aeruginosa) (mallei) (pseudomallei) as the cause of diseases classified elsewhere; F17.210 Nicotine dependence, cigarettes, uncomplicated; G89.29 Other chronic pain
CPT/HCPCS: 62267; 72158; 76937; 77002; 77003; 80048; 80053; 80074; 80202; 81003; 82565; 84132; 85025; 85610; 85652; 85730; 86140; 86703; 87015; 87040; 87070; 87077; 87102; 87116; 87176; 87186; 87205; 87206; 93306; 96361; 96374; 96375; 96376; 99152; A9579; J0692; J0713; J1170; J1885; J2250; J2270; J2405; J3010; J3370; J7030; J7040; J7050; L0627